=== PATIENT | male | born 1960 | race Caucasian/White ===

== ENCOUNTER → 2020-11-16 08:39 | Outpatient (CLI) | payer BC ==
[~2020-11-16 08:39] MED LIST: ALPRAZOLAM0.25 MG PO; LIVALO2 MG
== END | disposition home or self-care (01) ==
LOC: LAB 08:39
DX: E78.2 Mixed hyperlipidemia (principal); I10 Essential (primary) hypertension; Z21 Asymptomatic human immunodeficiency virus [HIV] infection status

== ENCOUNTER 2021-01-23 14:28 | Emergency (ER) | payer BC ==
[~2021-01-23] VITALS: Ht 165.1 cm; Wt 78.0 kg
[2021-01-23] MEDS ORDERED: BENZONATATE200 M1 PO (19:46)
[2021-01-23] MEDS ORDERED: ZITHROMAX500 MG PO (19:46)
[2021-01-24] MEDS ORDERED: ACIDO FOLICO (23:36)
[2021-01-24] MEDS ORDERED: SYNTHROID (23:36)
[2021-01-24] MEDS ORDERED: BIKTARVY (23:37)
[2021-01-24] MEDS ORDERED: HYDROCHLOROTHIAZIDE (23:38)
== END 2021-01-23 19:56 | disposition home or self-care (01) ==
LOC: ER 14:28
DX: B20 Human immunodeficiency virus [HIV] disease (principal); B34.9 Viral infection, unspecified; R50.9 Fever, unspecified; R05 Cough; Z11.52 Encounter for screening for COVID-19

== ENCOUNTER 2021-01-24 22:34 | Emergency (ER) | payer BC ==
[~2021-01-24] VITALS: Ht 165.1 cm; Wt 78.0 kg
[~2021-01-24 22:34] MED LIST changes: +BENZONATATE200 M1 PO; +ZITHROMAX500 MG PO
[2021-01-24] MEDS ORDERED: SYNTHROID (23:36)
[2021-01-24] MEDS ORDERED: ACIDO FOLICO (23:36)
[2021-01-24] MEDS ORDERED: BIKTARVY (23:37)
[2021-01-24] MEDS ORDERED: HYDROCHLOROTHIAZIDE (23:38)
== END 2021-01-25 02:23 | disposition home or self-care (01) ==
LOC: ER 22:34
DX: T18.198A Other foreign object in esophagus causing other injury, initial encounter (principal); W45.8XXA Other foreign body or object entering through skin, initial encounter; Y93.89 Activity, other specified; Y92.89 Other specified places as the place of occurrence of the external cause; Y99.8 Other external cause status

== ENCOUNTER → 2021-02-23 09:45 | Outpatient (CLI) | payer BC ==
[~2021-02-23 09:45] MED LIST changes: +ACIDO FOLICO; +BIKTARVY; +HYDROCHLOROTHIAZIDE; +SYNTHROID
== END | disposition home or self-care (01) ==
LOC: LAB 09:45
DX: E03.8 Other specified hypothyroidism (principal); E55.9 Vitamin D deficiency, unspecified; E78.00 Pure hypercholesterolemia, unspecified

== ENCOUNTER 2021-05-29 09:19 | Outpatient (CLI) | payer BC | END 2021-05-29 09:23 | disposition home or self-care (01) | LOC: LAB 09:19 | DX: D72.819 Decreased white blood cell count, unspecified (principal) ==

== ENCOUNTER → 2021-09-12 09:22 | Outpatient (CLI) | payer BC | END | disposition home or self-care (01) | LOC: LAB 09:22 | PROVIDERS: ATTEND Specialist | DX: E03.9 Hypothyroidism, unspecified (principal); E11.21 Type 2 diabetes mellitus with diabetic nephropathy; N39.9 Disorder of urinary system, unspecified; E78.2 Mixed hyperlipidemia; E11.65 Type 2 diabetes mellitus with hyperglycemia; Z12.11 Encounter for screening for malignant neoplasm of colon; D64.9 Anemia, unspecified; N25.81 Secondary hyperparathyroidism of renal origin ==

== ENCOUNTER 2021-09-22 09:19 | Outpatient (CLI) | payer BC | END 2021-09-22 09:44 | disposition home or self-care (01) | LOC: LAB 09:19 | PROVIDERS: ATTEND Specialist | DX: D64.9 Anemia, unspecified (principal); J45.998 Other asthma; K70.0 Alcoholic fatty liver ==

== ENCOUNTER 2021-09-22 10:53 | Outpatient (CLI) | payer BC | END 2021-09-22 10:57 | disposition home or self-care (01) | LOC: TOM 10:53 | PROVIDERS: ATTEND Specialist | DX: J18.9 Pneumonia, unspecified organism (principal) ==

== ENCOUNTER 2021-10-17 09:31 | Outpatient (CLI) | payer BC | END 2021-10-17 09:32 | disposition home or self-care (01) | LOC: LAB 09:31 | PROVIDERS: ATTEND Internal Medicine Infectious Disease | DX: B20 Human immunodeficiency virus [HIV] disease (principal) ==

== ENCOUNTER 2022-02-21 10:05 | Outpatient (CLI) | payer BC | END 2022-02-21 10:17 | disposition home or self-care (01) | LOC: LAB 10:05 | PROVIDERS: ATTEND Specialist | DX: B20 Human immunodeficiency virus [HIV] disease (principal); N39.9 Disorder of urinary system, unspecified; E03.8 Other specified hypothyroidism; D64.89 Other specified anemias; E11.21 Type 2 diabetes mellitus with diabetic nephropathy; R07.89 Other chest pain; E11.69 Type 2 diabetes mellitus with other specified complication; I10 Essential (primary) hypertension; E78.2 Mixed hyperlipidemia; E03.9 Hypothyroidism, unspecified; M46.90 Unspecified inflammatory spondylopathy, site unspecified; A64 Unspecified sexually transmitted disease; Z12.5 Encounter for screening for malignant neoplasm of prostate; Z13.220 Encounter for screening for lipoid disorders ==

== ENCOUNTER 2022-07-12 08:29 | Outpatient (CLI) | payer BC | END 2022-07-12 08:30 | disposition home or self-care (01) | LOC: LAB 08:29 | PROVIDERS: ATTEND Specialist | DX: E03.9 Hypothyroidism, unspecified (principal); M79.10 Myalgia, unspecified site; E55.9 Vitamin D deficiency, unspecified; E11.21 Type 2 diabetes mellitus with diabetic nephropathy; D64.9 Anemia, unspecified; R97.20 Elevated prostate specific antigen [PSA]; B20 Human immunodeficiency virus [HIV] disease ==

== ENCOUNTER → 2022-07-18 08:16 | Outpatient (CLI) | payer BC | END | disposition home or self-care (01) | LOC: LAB 08:16 | PROVIDERS: ATTEND Specialist | DX: I10 Essential (primary) hypertension (principal); E78.2 Mixed hyperlipidemia; R73.09 Other abnormal glucose; Z20.6 Contact with and (suspected) exposure to human immunodeficiency virus [HIV]; E03.9 Hypothyroidism, unspecified ==

== ENCOUNTER → 2022-07-31 13:37 | Outpatient (CLI) | payer BC | END | disposition home or self-care (01) | LOC: LAB 13:37 | DX: M54.40 Lumbago with sciatica, unspecified side (principal); M25.559 Pain in unspecified hip ==

== ENCOUNTER 2022-11-20 08:32 | Outpatient (CLI) | payer BC | END 2022-11-20 08:33 | disposition home or self-care (01) | LOC: LAB 08:32 | PROVIDERS: ATTEND Internal Medicine Infectious Disease | DX: B20 Human immunodeficiency virus [HIV] disease (principal) ==

== ENCOUNTER 2023-04-22 08:52 | Outpatient (CLI) | payer BC ==
[2023-04-22 10:07] LABS: HEMATOCRIT 42.7 % (39.0-48.0); HEMOGLOBIN 14.9 g/dL (13-16.00); MEAN CELL VOLUME 94.1 fL (80.0-100.00); MEAN CORPUSCULAR HEMOGLOBIN 32.9 pg (27.00-32.0); MEAN CORPUSCULAR HGB CONC 34.9 g/dl (32.0-36.0); PLATELET COUNT 254 K/uL (150-450); RED BLOOD COUNT 4.53 M/uL (4.00-6.00); RED CELL DISTRIBUTION WIDTH 17.1 % (11.5-14.5)
[2023-04-22 11:04] LABS: FOLIC ACID > 20.00 ng/ml (4.78-20)
== END 2023-04-22 08:54 | disposition home or self-care (01) ==
LOC: LAB 08:52
PROVIDERS: ATTEND Internal Medicine Infectious Disease
DX: B20 Human immunodeficiency virus [HIV] disease (principal)

== ENCOUNTER 2023-04-23 06:51 | Outpatient (CLI) | payer BC ==
[2023-04-23 13:23] LABS: ob NEGATIVE (NEGATIVE)
== END 2023-04-23 06:53 | disposition home or self-care (01) ==
LOC: LAB 06:51
PROVIDERS: ATTEND Internal Medicine Infectious Disease
DX: B20 Human immunodeficiency virus [HIV] disease (principal)

== ENCOUNTER 2023-05-08 06:57 | Outpatient (CLI) | payer BC ==
[2023-05-08 08:02] LABS: HEMATOCRIT 43.8 % (39.0-48.0); HEMOGLOBIN 14.7 g/dL (13-16.00); MEAN CELL VOLUME 97.1 fL (80.0-100.00); MEAN CORPUSCULAR HEMOGLOBIN 32.5 pg (27.00-32.0); MEAN CORPUSCULAR HGB CONC 33.5 g/dl (32.0-36.0); PLATELET COUNT 225 K/uL (150-450); RED CELL DISTRIBUTION WIDTH 15.3 % (11.5-14.5)
[2023-05-08 08:05] LABS: URINE APPEARANCE Clear; URINE BILIRRUBIN Negative (NEGATIVE); URINE BLOOD Negative; URINE COLOR Yellow; URINE GLUCOSE Negative (NEGATIVE); URINE LEUKOCYTE Negative; URINE NITRATE Negative; URINE PROTEIN Negative (NEGATIVE)
[2023-05-08 08:08] LABS: URINE BACTERIA 13.8 uL (0.0-1933); URINE RBC 4.4 uL (0.0-20.8)
[2023-05-08 08:34] LABS: ALBUMIN 3.5 gm/dL (3.4-5.0); BILIRUBIN TOTAL 1.29 mg/dL (0.3-1.2); CALCIUM 8.5 mg/dL (8.5-10.1); CHOL HDL RATIO 2.5 (0-5.0); CREATININE SERUM 1.06 mg/dL (0.70-1.30); GFR 70.34; GLOBULINA 3.2 G/DL (2.4-3.5); POTASSIUM 3.75 mEq/L (3.5-5.1); PROSTATIC SPECIFIC ANTIGEN 2.24 NG/ML (0.010-4.00); TOTAL PROTEIN 6.7 gm/dL (6.4-8.2)
== END 2023-05-08 07:10 | disposition home or self-care (01) ==
LOC: LAB 06:57
PROVIDERS: ATTEND Internal Medicine Infectious Disease
DX: B20 Human immunodeficiency virus [HIV] disease (principal); N40.0 Benign prostatic hyperplasia without lower urinary tract symptoms

== ENCOUNTER 2024-03-18 09:02 | Outpatient (CLI) | payer OTHER, BC | END 2024-03-18 09:06 | disposition home or self-care (01) | LOC: LAB 09:02 | DX: E06.3 Autoimmune thyroiditis (principal) ==

== ENCOUNTER 2024-04-14 09:15 | Outpatient (CLI) | payer OTHER, BC ==
[2024-04-14 10:08] LABS: PH,URINE 5.5 (5.0-8.0); URINE APPEARANCE Clear; URINE BILIRRUBIN Negative (NEGATIVE); URINE BLOOD Negative; URINE COLOR Dark Yellow; URINE GLUCOSE Negative (NEGATIVE); URINE KETONE Trace (NEGATIVE); URINE LEUKOCYTE Trace; URINE NITRATE Negative; URINE PROTEIN Negative (NEGATIVE)
[2024-04-14 10:10] LABS: URINE BACTERIA 16.3 uL (0.0-1933); URINE EPITHELIAL CELLS 1.8 uL (0.0-38.8); URINE RBC 3.2 uL (0.0-20.8); URINE WBC 6.9 uL (0.0-23.2)
[2024-04-14 10:16] LABS: URINE CAST 0.15 uL (0.0-1.40)
[2024-04-14 10:27] LABS: HEMATOCRIT 37.6 % (39.0-48.0); HEMOGLOBIN 12.4 g/dL (13-16.00); MEAN CELL VOLUME 85.6 fL (80.0-100.00); MEAN CORPUSCULAR HEMOGLOBIN 28.3 pg (27.00-32.0); MEAN CORPUSCULAR HGB CONC 33.1 g/dl (32.0-36.0); PLATELET COUNT 287 K/uL (150-450); RED BLOOD COUNT 4.39 M/uL (4.00-6.00); RED CELL DISTRIBUTION WIDTH 15.5 % (11.5-14.5)
[2024-04-14 11:41] LABS: ALBUMIN 3.6 gm/dL (3.4-5.0); BILIRUBIN TOTAL 1.34 mg/dL (0.3-1.2); CALCIUM 9.1 mg/dL (8.5-10.1); CREATININE SERUM 1.12 mg/dL (0.70-1.30); GFR 65.8; GLOBULINA 3.5 G/DL (2.4-3.5); POTASSIUM 4.1 mEq/L (3.5-5.1); TOTAL PROTEIN 7.1 gm/dL (6.4-8.2)
[2024-04-17 17:11] LABS: hiv 1 < 20 (.)
== END 2024-04-14 09:26 | disposition home or self-care (01) ==
LOC: LAB 09:15
PROVIDERS: ATTEND Internal Medicine Infectious Disease
DX: B20 Human immunodeficiency virus [HIV] disease (principal)

== ENCOUNTER 2024-04-28 11:27 | Outpatient (CLI) | payer OTHER, BC ==
[2024-04-28 13:47] LABS: CHOL HDL RATIO 3.5 (0-5.0); T4 TOTAL 8.09 UG/DL (4.5-12.1)
[2024-04-28 13:48] LABS: TSH 0.114 uIU/mL (0.358-3.74)
== END 2024-04-28 11:32 | disposition home or self-care (01) ==
LOC: LAB 11:27
PROVIDERS: ATTEND Internal Medicine Infectious Disease
DX: E78.5 Hyperlipidemia, unspecified (principal); B20 Human immunodeficiency virus [HIV] disease; E03.9 Hypothyroidism, unspecified

== ENCOUNTER → 2024-05-12 11:21 | Outpatient (CLI) | payer OTHER, BC ==
[2024-05-12 12:25] LABS: HEMATOCRIT 36.9 % (39.0-48.0); HEMOGLOBIN 12.1 g/dL (13-16.00); MEAN CELL VOLUME 84.6 fL (80.0-100.00); MEAN CORPUSCULAR HEMOGLOBIN 27.8 pg (27.00-32.0); MEAN CORPUSCULAR HGB CONC 32.8 g/dl (32.0-36.0); PLATELET COUNT 297 K/uL (150-450); RED BLOOD COUNT 4.36 M/uL (4.00-6.00); RED CELL DISTRIBUTION WIDTH 17.3 % (11.5-14.5)
[2024-05-12 13:02] LABS: TSH 0.371 uIU/mL (0.358-3.74)
[2024-05-12 13:11] LABS: FERRITIN 6.6 NG/ML (26-388)
[2024-05-12 14:07] LABS: FOLIC ACID > 20.00 ng/ml (4.78-20)
[2024-05-12 14:46] LABS: ob NEGATIVE (NEGATIVE)
== END | disposition home or self-care (01) ==
LOC: LAB 11:21
PROVIDERS: ATTEND Internal Medicine Infectious Disease
DX: D64.9 Anemia, unspecified (principal); E78.5 Hyperlipidemia, unspecified; B20 Human immunodeficiency virus [HIV] disease

== ENCOUNTER 2024-06-02 10:22 | Emergency (ER) | payer OTHER, BC ==
[~2024-06-02] VITALS: Ht 165.1 cm; Wt 76.7 kg
[2024-06-02] MEDS ORDERED: METOCLOPRAMIDE HCL IV STA (12:38)
[2024-06-02] MEDS ORDERED: FAMOtidine 10 MG/ML (4ML VIAL) IV STA (12:38)
[2024-06-02 12:54] LABS: HEMATOCRIT 43.8 % (39.0-48.0); HEMOGLOBIN 14.7 g/dL (13-16.00); MEAN CELL VOLUME 85.2 fL (80.0-100.00); MEAN CORPUSCULAR HEMOGLOBIN 28.6 pg (27.00-32.0); MEAN CORPUSCULAR HGB CONC 33.5 g/dl (32.0-36.0); PLATELET COUNT 284 K/uL (150-450); RED BLOOD COUNT 5.14 M/uL (4.00-6.00); RED CELL DISTRIBUTION WIDTH 16.8 % (11.5-14.5)
[2024-06-02] MEDS ORDERED: METOCLOPRAMIDE HCL 5 MG/ML VIAL IV ONE (13:00)
[2024-06-02 13:17] LABS: URINE APPEARANCE Clear; URINE BILIRRUBIN Negative (NEGATIVE); URINE BLOOD Negative; URINE COLOR Yellow; URINE GLUCOSE Negative (NEGATIVE); URINE KETONE Negative (NEGATIVE); URINE LEUKOCYTE Negative; URINE NITRATE Negative; URINE PROTEIN Negative (NEGATIVE); URINE UROBILINOGEN 0.2 E.U./dl
[2024-06-02 13:33] LABS: URINE RBC 1.2 uL (0.0-20.8); URINE WBC 0.7 uL (0.0-23.2)
[2024-06-02 14:29] LABS: ALBUMIN 3.9 gm/dL (3.4-5.0); BILIRUBIN TOTAL 1.45 mg/dL (0.3-1.2); BILIRUBIN,CONJUGATED 0.31 mg/dL (0.0-0.2); BILIRUBIN,UNCONJUGATED 1.14 mg/dL (0.0-0.6); CALCIUM 9.4 mg/dL (8.5-10.1); CREATININE SERUM 0.96 mg/dL (0.70-1.30); GFR 78.61; POTASSIUM 3.54 mEq/L (3.5-5.1); TOTAL PROTEIN 7.7 gm/dL (6.4-8.2)
== END 2024-06-02 16:11 | disposition home or self-care (01) ==
LOC: ER 10:24
PROVIDERS: General Practice
DX: R11.10 Vomiting, unspecified (principal); K44.9 Diaphragmatic hernia without obstruction or gangrene; K21.9 Gastro-esophageal reflux disease without esophagitis; K80.80 Other cholelithiasis without obstruction
CPT/HCPCS: 36415; 74176; 96365; 99284; J2765; J3490

== ENCOUNTER 2024-09-15 10:14 | Outpatient (CLI) | payer OTHER, BC | END 2024-09-15 10:23 | disposition home or self-care (01) | LOC: RAD 10:14 | DX: R44.9 Unspecified symptoms and signs involving general sensations and perceptions (principal) ==

== ENCOUNTER 2024-09-22 07:42 | Outpatient (CLI) | payer OTHER, BC | END 2024-09-22 07:47 | disposition home or self-care (01) | LOC: LAB 07:42 | DX: E06.3 Autoimmune thyroiditis (principal) ==

== ENCOUNTER → 2024-11-25 08:09 | Outpatient (CLI) | payer OTHER, BC ==
[2024-11-25 09:04] LABS: BASO % 0.8 % (0.1-1.2); EOS # 0.05 (0.04-0.54); EOS % 1.3 % (0.7-7.0); HEMATOCRIT 40.4 % (40.1-51.0); HEMOGLOBIN 14.1 g/dL (13.7-17.5); LYMPH # 1.75 (1.18-3.74); LYMPH % 44.2 % (19.3-53.1); MEAN CORPUSCULAR HEMOGLOBIN 34.1 pg (25.6-32.2); MONO # 0.42 (0.24-0.82); MONO % 10.6 % (4.7-12.5); NEUT % 42.8 % (34.0-71.1); PLATELET COUNT 377 K/uL (163-369); RED BLOOD COUNT 4.13 M/uL (4.63-6.08); RED CELL DISTRIBUTION WIDTH 13.2 % (11.6-14.4)
[2024-11-25 09:09] LABS: URINE APPEARANCE Clear; URINE BILIRRUBIN Negative (NEGATIVE); URINE BLOOD Negative; URINE COLOR Yellow; URINE GLUCOSE Negative (NEGATIVE); URINE KETONE Trace (NEGATIVE); URINE LEUKOCYTE Negative; URINE NITRATE Negative; URINE PROTEIN Negative (NEGATIVE); URINE UROBILINOGEN 0.2 E.U./dl
[2024-11-25 09:11] LABS: URINE BACTERIA 8.5 uL (0.0-1933); URINE EPITHELIAL CELLS 1.4 uL (0.0-38.8); URINE RBC 10.1 uL (0.0-20.8); URINE WBC 4.4 uL (0.0-23.2)
[2024-11-25 09:15] LABS: URINE CAST 0.14 uL (0.0-1.40)
[2024-11-25 11:31] LABS: ALBUMIN 3.3 gm/dL (3.4-5.0); BILIRUBIN TOTAL 0.58 mg/dL (0.3-1.2); CALCIUM 8.5 mg/dL (8.5-10.1); CHOL HDL RATIO 4.7 (0-5.0); CREATININE SERUM 1.06 mg/dL (0.70-1.30); GFR 70.11; GLOBULINA 3.8 G/DL (2.4-3.5); POTASSIUM 4.52 mEq/L (3.5-5.1); T4 TOTAL 7.69 UG/DL (4.5-12.1); TOTAL PROTEIN 7.1 gm/dL (6.4-8.2)
[2024-11-25 11:38] LABS: TSH 8.01 uIU/mL (0.358-3.74)
== END | disposition home or self-care (01) ==
LOC: LAB 08:09
PROVIDERS: ATTEND Internal Medicine Infectious Disease
DX: R94.6 Abnormal results of thyroid function studies (principal); Z13.220 Encounter for screening for lipoid disorders

== ENCOUNTER 2025-02-03 07:38 | Outpatient (CLI) | payer OTHER, BC | END 2025-02-03 07:42 | disposition home or self-care (01) | LOC: LAB 07:38 | PROVIDERS: ATTEND Urology | DX: R97.20 Elevated prostate specific antigen [PSA] (principal) ==

== ENCOUNTER 2025-02-24 07:58 | Outpatient (CLI) | payer OTHER, BC ==
[2025-02-24 09:03] LABS: URINE APPEARANCE Clear; URINE BILIRRUBIN Negative (NEGATIVE); URINE BLOOD Negative; URINE COLOR Yellow; URINE GLUCOSE Negative (NEGATIVE); URINE KETONE Negative (NEGATIVE); URINE LEUKOCYTE Negative; URINE NITRATE Negative; URINE PROTEIN Negative (NEGATIVE); URINE UROBILINOGEN 0.2 E.U./dl
[2025-02-24 09:07] LABS: URINE BACTERIA 5.9 uL (0.0-1933)
[2025-02-24 09:07] LABS: BASO % 0.2 % (0.1-1.2); EOS # 0.06 (0.04-0.54); EOS % 1.4 % (0.7-7.0); LYMPH # 1.88 (1.18-3.74); LYMPH % 45.1 % (19.3-53.1); MEAN PLATELET VOLUME 10.00 fl (9.4-12.4); MONO # 0.40 (0.24-0.82); MONO % 9.6 % (4.7-12.5); NEUT # 1.82 (1.56-6.13); NEUT % 43.7 % (34.0-71.1); RED CELL DISTRIBUTION WIDTH 12.0 % (11.6-14.4)
[2025-02-24 09:20] LABS: URINE CAST 0.00 uL (0.0-1.40); URINE EPITHELIAL CELLS 0.6 uL (0.0-38.8); URINE RBC 1.3 uL (0.0-20.8); URINE WBC 0.9 uL (0.0-23.2)
[2025-02-24 09:44] LABS: BUN CREA RATIO 12.0 (7.0-25.0); CHOL HDL RATIO 2.6 (0-5.0); CREATININE SERUM 1.13 mg/dL (0.70-1.30); GFR 64.93; GLUCOSE FASTING 98.0 mg/dL (65-100); HDL 67.0 mg/dl (40-60); OSMOLALITY SERUM 283.0 MOSM/KG (275-295)
[2025-02-24 09:45] LABS: LDL 62.0 mg/dl (0-130); TSH 5.27 uIU/mL (0.358-3.74); VLDL 47.0 (0-39)
== END 2025-02-24 07:59 | disposition home or self-care (01) ==
LOC: LAB 07:58
PROVIDERS: ATTEND Internal Medicine
DX: D64.9 Anemia, unspecified (principal); E11.9 Type 2 diabetes mellitus without complications; E78.2 Mixed hyperlipidemia; N39.0 Urinary tract infection, site not specified; E03.8 Other specified hypothyroidism

== ENCOUNTER 2025-03-11 09:35 | Outpatient (CLI) | payer OTHER, BC | END 2025-03-11 10:09 | disposition home or self-care (01) | LOC: RAD 09:35 | PROVIDERS: ATTEND Internal Medicine | DX: E03.8 Other specified hypothyroidism (principal); E21.3 Hyperparathyroidism, unspecified; M54.17 Radiculopathy, lumbosacral region | CPT/HCPCS: 72148 ==

== ENCOUNTER 2025-05-25 11:10 | Outpatient (CLI) | payer OTHER, BC | END 2025-05-25 11:11 | disposition home or self-care (01) | LOC: LAB 11:10 | DX: E06.3 Autoimmune thyroiditis (principal) ==

== ENCOUNTER → 2025-05-26 08:25 | Outpatient (CLI) | payer OTHER, BC ==
[2025-05-26 09:29] LABS: BASO % 0.2 % (0.1-1.2); EOS # 0.10 (0.04-0.54); EOS % 2.4 % (0.7-7.0); LYMPH # 1.38 (1.18-3.74); LYMPH % 32.7 % (19.3-53.1); MEAN PLATELET VOLUME 9.90 fl (9.4-12.4); MONO # 0.44 (0.24-0.82); MONO % 10.4 % (4.7-12.5); NEUT # 2.27 (1.56-6.13); NEUT % 53.8 % (34.0-71.1); RED CELL DISTRIBUTION WIDTH 11.9 % (11.6-14.4)
[2025-05-26 10:04] LABS: URINE APPEARANCE Clear; URINE BILIRRUBIN Negative (NEGATIVE); URINE BLOOD Negative; URINE COLOR Yellow; URINE GLUCOSE Negative (NEGATIVE); URINE KETONE Negative (NEGATIVE); URINE LEUKOCYTE Negative; URINE NITRATE Negative; URINE PROTEIN Negative (NEGATIVE); URINE UROBILINOGEN 1.0 E.U./dl
[2025-05-26 10:09] LABS: URINE BACTERIA 5.9 uL (0.0-1933)
[2025-05-26 10:16] LABS: URINE CAST 0.00 uL (0.0-1.40); URINE EPITHELIAL CELLS 0.3 uL (0.0-38.8); URINE RBC 1.1 uL (0.0-20.8); URINE WBC 1.0 uL (0.0-23.2)
[2025-05-26 10:26] LABS: ALT/SGPT 19.0 U/L (12-78); AST/SGOT 17.0 U/L (15-37); BILIRUBIN TOTAL 0.88 mg/dL (0.3-1.2); BUN CREA RATIO 11.0 (7.0-25.0); CREATININE SERUM 0.97 mg/dL (0.70-1.30); GFR 77.43; GLOBULINA 3.0 G/DL (2.4-3.5); GLUCOSE FASTING 97.0 mg/dL (65-100); OSMOLALITY SERUM 282.0 MOSM/KG (275-295)
[2025-05-26 10:34] LABS: CHOL HDL RATIO 2.2 (0-5.0); HDL 47.0 mg/dl (40-60); LDL 43.0 mg/dl (0-130); VLDL 15.0 (0-39)
== END | disposition home or self-care (01) ==
LOC: LAB 08:25
PROVIDERS: ATTEND Internal Medicine Infectious Disease
DX: E78.5 Hyperlipidemia, unspecified (principal)